=== PATIENT | male | born 1940 | race Caucasian/White ===

== ENCOUNTER 2018-05-08 13:54 | Outpatient (CLI) | payer MEDICARE ==
--- NOTE | 2018-05-08 15:54 | RAD ---
LUMBAR SPINE 4 VIEWS: Date: 05/08/18 HISTORY: Preoperative exam. Lumbar disc displacement. Radiculopathy. FINDINGS: Five lumbar-type type vertebral bodies. There is mild leftward curvature of the lumbar spine at the L 3-4 level. There is vacuum disc phenomenon and osteophyte formation along the right aspect of the L3- L4 disc space. In the neutral position, there is mild straightening of normal lumbar lordosis without significant spondylolisthesis. Upon extension and flexion, there is no abnormal motion. Atherosclerosis of aorta noted. IMPRESSION: Degenerative changes of lumbar spine. No spondylolisthesis or spondylolysis. POS: SANDY
== END 2018-05-08 13:55 | disposition home or self-care (01) ==
LOC: MADRAD 13:54
PROVIDERS: ATTEND Neurological Surgery
DX: M48.062 Spinal stenosis, lumbar region with neurogenic claudication (principal); M47.26 Other spondylosis with radiculopathy, lumbar region; M51.16 Intervertebral disc disorders with radiculopathy, lumbar region
CPT/HCPCS: 72110